=== PATIENT | female | born 1980 | race Caucasian/White ===

== ENCOUNTER 2025-01-25 12:30 | Emergency (ER) | payer OTHER ==
[~2025-01-25] VITALS: Ht 167.6 cm; Wt 47.6 kg
[2025-01-25 12:31] VITALS: BP 127/84
[2025-01-25 13:18] VITALS: BP 127/84; TEMP 97.7; O2SAT 99
== END 2025-01-25 13:19 | disposition home or self-care (01) ==
LOC: ER 12:30
DX: S46.812A Strain of other muscles, fascia and tendons at shoulder and upper arm level, left arm, initial encounter (principal); R20.0 Anesthesia of skin; R20.2 Paresthesia of skin; X58.XXXA Exposure to other specified factors, initial encounter; Y93.89 Activity, other specified; Y92.89 Other specified places as the place of occurrence of the external cause; Y99.8 Other external cause status
CPT/HCPCS: 73020; A4606; A4663